=== PATIENT | male | born 1950 | race Caucasian/White ===

== ENCOUNTER 2021-01-07 07:38 | Outpatient (CLI) | payer OTHER | END 2021-01-07 07:43 | disposition home or self-care (01) | LOC: TOM 07:38 | PROVIDERS: ATTEND Internal Medicine Clinical Cardiac Electrophysiology | DX: R91.8 Other nonspecific abnormal finding of lung field (principal); K46.9 Unspecified abdominal hernia without obstruction or gangrene | CPT/HCPCS: 71260; Q9965 ==